=== PATIENT | female | born 1980 | race Caucasian/White ===

== ENCOUNTER → 2017-03-14 | Outpatient (CLI) | payer OTHER ==
--- NOTE | 2017-03-15 09:29 | XR ---
EXAMINATION TYPE: XR chest 2V DATE OF EXAM: 03/14/2017 COMPARISON: NONE HISTORY: Z77.120, rheumatoid arthritis TECHNIQUE: Frontal and lateral views of the chest are obtained. FINDINGS: There is no focal air space opacity, pleural effusion, or pneumothorax seen. The cardiac silhouette size is within normal limits. There is mild spinal curvature. Suspected mild pectus deform ity. The osseous structures are intact. IMPRESSION: No acute cardiopulmonary process.
== END | disposition home or self-care (01) ==
LOC: RADXRMAIN 12:47
PROVIDERS: ATTEND Internal Medicine
DX: Z77.120 Contact with and (suspected) exposure to mold (toxic) (principal)
CPT/HCPCS: 71020

== ENCOUNTER 2019-03-25 15:31 | Emergency (ER) | payer OTHER ==
[2019-03-25 15:46] VITALS: BP 136/81; PULSE 111; RESP 20; TEMP 98
[2019-03-25] MEDS ORDERED: SODIUM CHLORIDE 0.9% 1,000 ML IV STA (15:49)
[2019-03-25] MEDS ORDERED: KETOROLAC 30 MG/ML 1 ML VIAL IVP STA (15:49)
[2019-03-25] MEDS ORDERED: ORPHENADRINE 30 MG/ML 2 ML VIAL IVP STA (15:49)
--- NOTE | 2019-03-25 15:59 | ED ---
General Adult HPI - General Chief complaint: Back Pain/Injury Stated complaint: back pain Time Seen by Provider: 03/25/19 15:37 Source: patient, RN notes reviewed, old records reviewed Mode of arrival: ambulatory Limitations: no limitations - History of Present Illness Initial comments: This is a 30-year-old female presents today with complaints of 3 days of right- sided back pain. She reports it seemed to a sudden onset without any triggering factors such as movement or twisting. Patient states that she's had a similar back pain as this and she's had a ruptured ovarian cyst. Patient states that she was placed on control for ovarian cysts, but states that she did take herself off of the due to prolonged bleeding about 3 months ago. She states she resumed it as of yesterday. Patient states that she feels that there is swelling and irritation over the lower back. She denies any radiation down the leg. She denies any changes in stools or urination. - Related Data Home Medications Medication Instructions Recorded Confirmed Albuterol Inhaler [Ventolin Hfa 1 - 2 puff INHALATION RT-Q6H PRN 03/25/19 03/25/19 Inhaler] Escitalopram Oxalate [Lexapro] 10 mg PO DAILY 03/25/19 03/25/19 Folic Acid 1 mg PO DAILY 03/25/19 03/25/19 Ibuprofen [Motrin] 800 mg PO TID PRN 03/25/19 03/25/19 Norethindrone-E.estradiol-Iron 1 tab PO DAILY 03/25/19 03/25/19 [Junel Fe 24 Tablet] Previous Rx's Medication Instructions Recorded Baclofen 10 mg PO TID #15 tab 03/25/19 Ketorolac [Toradol] 10 mg PO TID #15 tab 03/25/19 traMADol HCL [Ultram] 50 mg PO Q6HR PRN 3 Days #12 tab 03/25/19 Nitrofurantoin Monohyd/M-Cryst 100 mg PO Q12HR #14 cap 03/26/19 [Macrobid] Allergies Allergy/AdvReac Type Severity Reaction Status Date / Time Penicillins Allergy Unknown Verified 03/26/19 07:58 Childhood Review of Systems ROS Statement: Those systems with pertinent positive or pertinent negative responses have been documented in the HPI. ROS Other: All systems not noted in ROS Statement are negative. Past Medical History Past Medical History: Asthma, Rheumatoid Arthritis (RA) History of Any Multi-Drug Resistant Organisms: None Reported Past Surgical History: Orthopedic Surgery, Tubal Ligation Additional Past Surgical History / Comment(s): rt knee Past Psychological History: Anxiety Smoking Status: Current every day smoker Past Alcohol Use History: Occasional Past Drug Use History: None Reported General Exam Limitations: no limitations General appearance: alert, in no apparent distress Head exam: Present: atraumatic, normocephalic, normal inspection Eye exam: Present: normal appearance, PERRL, EOMI. Absent: scleral icterus, conjunctival injection, periorbital swelling ENT exam: Present: normal exam, mucous membranes moist Neck exam: Present: normal inspection. Absent: tenderness, meningismus, lymphadenopathy Respiratory exam: Present: normal lung sounds bilaterally. Absent: respiratory distress, wheezes, rales, rhonchi, stridor Cardiovascular Exam: Present: regular rate, normal rhythm, normal heart sounds. Absent: systolic murmur, diastolic murmur, rubs, gallop, clicks GI/Abdominal exam: Present: soft, normal bowel sounds. Absent: distended, tenderness, guarding, rebound, rigid Extremities exam: Present: normal inspection, full ROM, normal capillary refill. Absent: tenderness, pedal edema, joint swelling, calf tenderness Back exam: Present: normal inspection, tenderness (over lumbar spine and right sided paraspinal muscle spasm. ) Neurological exam: Present: alert, oriented X3, CN II-XII intact Psychiatric exam: Present: normal affect, normal mood Skin exam: Present: warm, dry, intact, normal color. Absent: rash Course Vital Signs 03/25/19 15:43 Temperature 98.0 F Pulse Rate 111 H Respiratory 20 Rate Blood Pressure 136/81 O2 Sat by Pulse 97 Oximetry Medical Decision Making - Medical Decision Making 38-year-old female presents today with some right-sided back pain past few days. Patient was concerned this is likely related to ovarian cyst rupture. Labs were unremarkable. Patient has minimal abdominal tenderness. She does have evidence of back spasm. Patient feels better after norflexx and toradol. Discussed imaging such as transvaginal US, patient declines prefers follow up with OB. All questions answered. Return parameters discussed. UA also shows mild uti, will culture. - Lab Data Result diagrams: 03/25/19 16:00 03/25/19 16:00 Lab Results 03/25/19 03/25/19 03/25/19 Range/Units 16:00 16:00 16:00 WBC 6.3 (3.8-10.6) k/uL RBC 4.15 (3.80-5.40) m/uL Hgb 13.8 (11.4-16.0) gm/dL Hct 40.6 (34.0-46.0) % MCV 97.6 (80.0-100.0) fL MCH 33.1 (25.0-35.0) pg MCHC 33.9 (31.0-37.0) g/dL RDW 12.8 (11.5-15.5) % Plt Count 246 (150-450) k/uL Neutrophils % 65 % Lymphocytes % 24 % Monocytes % 4 % Eosinophils % 5 % Basophils % 1 % Neutrophils # 4.1 (1.3-7.7) k/uL Lymphocytes # 1.5 (1.0-4.8) k/uL Monocytes # 0.2 (0-1.0) k/uL Eosinophils # 0.3 (0-0.7) k/uL Basophils # 0.0 (0-0.2) k/uL Sodium 137 (137-145) mmol/L Potassium 3.9 (3.5-5.1) mmol/L Chloride 106 (98-107) mmol/L Carbon Dioxide 20 L (22-30) mmol/L Anion Gap 11 mmol/L BUN 15 (7-17) mg/dL Creatinine 0.79 (0.52-1.04) mg/dL Est GFR (CKD-EPI)AfAm >90 (>60 ml/min/1.73 sqM) Est GFR (CKD-EPI)NonAf >90 (>60 ml/min/1.73 sqM) Glucose 151 H (74-99) mg/dL Calcium 9.2 (8.4-10.2) mg/dL Total Bilirubin 0.4 (0.2-1.3) mg/dL AST 23 (14-36) U/L ALT 15 (9-52) U/L Alkaline Phosphatase 59 (38-126) U/L Total Protein 7.1 (6.3-8.2) g/dL Albumin 4.0 (3.5-5.0) g/dL Urine Color Urine Appearance (Clear) Urine pH (5.0-8.0) Ur Specific [place] (1.001-1.035) Urine Protein (Negative) Urine Glucose (UA) (Negative) Urine Ketones (Negative) Urine Blood (Negative) Urine Nitrite (Negative) Urine Bilirubin (Negative) Urine Urobilinogen (<2.0) mg/dL Ur Leukocyte Esterase (Negative) Urine RBC (0-5) /hpf Urine WBC (0-5) /hpf Ur Squamous Epith Cells (0-4) /hpf Urine Bacteria (None) /hpf Urine Mucus (None) /hpf Urine HCG, Qual Not Detected (Not Detectd) 03/25/19 Range/Units 16:00 WBC (3.8-10.6) k/uL RBC (3.80-5.40) m/uL Hgb (11.4-16.0) gm/dL Hct (34.0-46.0) % MCV (80.0-100.0) fL MCH (25.0-35.0) pg MCHC (31.0-37.0) g/dL RDW (11.5-15.5) % Plt Count (150-450) k/uL Neutrophils % % Lymphocytes % % Monocytes % % Eosinophils % % Basophils % % Neutrophils # (1.3-7.7) k/uL Lymphocytes # (1.0-4.8) k/uL Monocytes # (0-1.0) k/uL Eosinophils # (0-0.7) k/uL Basophils # (0-0.2) k/uL Sodium (137-145) mmol/L Potassium (3.5-5.1) mmol/L Chloride (98-107) mmol/L Carbon Dioxide (22-30) mmol/L Anion Gap mmol/L BUN (7-17) mg/dL Creatinine (0.52-1.04) mg/dL Est GFR (CKD-EPI)AfAm (>60 ml/min/1.73 sqM) Est GFR (CKD-EPI)NonAf (>60 ml/min/1.73 sqM) Glucose (74-99) mg/dL Calcium (8.4-10.2) mg/dL Total Bilirubin (0.2-1.3) mg/dL AST (14-36) U/L ALT (9-52) U/L Alkaline Phosphatase (38-126) U/L Total Protein (6.3-8.2) g/dL Albumin (3.5-5.0) g/dL Urine Color Yellow Urine Appearance Cloudy H (Clear) Urine pH 8.0 (5.0-8.0) Ur Specific [place] 1.026 (1.001-1.035) Urine Protein 1+ H (Negative) Urine Glucose (UA) Negative (Negative) Urine Ketones Negative (Negative) Urine Blood Negative (Negative) Urine Nitrite Negative (Negative) Urine Bilirubin Negative (Negative) Urine Urobilinogen 2.0 (<2.0) mg/dL Ur Leukocyte Esterase Large H (Negative) Urine RBC 7 H (0-5) /hpf Urine WBC 27 H (0-5) /hpf Ur Squamous Epith Cells 16 H (0-4) /hpf Urine Bacteria Rare H (None) /hpf Urine Mucus Occasional H (None) /hpf Urine HCG, Qual (Not Detectd) - Radiology Data Radiology results: report reviewed Lumbar spine straightening . Lumbar spondylolisthesis. Disposition Clinical Impression: Right-sided back pain, Lumbar paraspinal muscle spasm, UTI (urinary tract infection) Disposition: HOME SELF-CARE Condition: Good Instructions (If sedation given, give patient instructions): Muscle Spasm (ED) Additional Instructions: Patient advised to have close follow-up with primary care doctor. Return to the emergency department if any alarming signs or symptoms occur. Prescriptions: Baclofen 10 mg PO TID #15 tab Nitrofurantoin Monohyd/M-Cryst [Macrobid] 100 mg PO Q12HR #14 cap Ketorolac [Toradol] 10 mg PO TID #15 tab traMADol HCL [Ultram] 50 mg PO Q6HR PRN 3 Days #12 tab PRN Reason: Pain Is patient prescribed a controlled substance at d/c from ED?: Yes If prescribed controlled substance>3 days was MAPS reviewed?: Prescribed <3 Days If opioid is for acute pain is fill amount 7 days or less?: Yes If Rx opioid, was Start Talking consent form obtained?: Yes Referrals: Duncan Morillo Jr, DO [Primary Care Provider] - 1-2 days Time of Disposition: 17:48
[2019-03-25 16:19] LABS: Basophils % (A) 1 %; Eosinophils # (A) 0.3 k/uL (0-0.7); Eosinophils % (A) 5 %; HCT 40.6 % (34.0-46.0); HGB 13.8 gm/dL (11.4-16.0); Lymphocytes # (A) 1.5 k/uL (1.0-4.8); Lymphocytes % (A) 24 %; MCH 33.1 pg (25.0-35.0); MCHC 33.9 g/dL (31.0-37.0); MCV 97.6 fL (80.0-100.0); Mean Platelet Volume 6.8; Monocytes # (A) 0.2 k/uL (0-1.0); Monocytes % (A) 4 %; Neutrophils # (A) 4.1 k/uL (1.3-7.7); Neutrophils % (A) 65 %; Platelet Count 246 k/uL (150-450); RBC 4.15 m/uL (3.80-5.40); RDW 12.8 % (11.5-15.5); WBC 6.3 k/uL (3.8-10.6)
[2019-03-25 16:22] LABS: Appearance,Urine Cloudy (Clear); Bacteria,Urine Rare /hpf; Bilirubin,Urine Negative (Negative); Blood,Urine Negative (Negative); Color,Urine Yellow; Glucose,Urine (UA) Negative (Negative); Ketones,Urine Negative (Negative); Leukocyte Esterase,Urine Large (Negative); Mucus,Urine Occasional /hpf; Nitrite,Urine Negative (Negative); Protein,Urine 1+ (Negative); RBC,Urine 7 /hpf (0-5); Specific Gravity,Urine 1.026 (1.001-1.035); Squamous Epithelial Cell,Urine 16 /hpf (0-4); WBC,Urine 27 /hpf (0-5)
[2019-03-25 16:27] LABS: ALT 15 U/L (9-52); AST 23 U/L (14-36); African American GFR (CKD) >90 (>60 ml/min/1.73 sqM); Alkaline Phosphatase 59 U/L (38-126); Anion Gap 11 mmol/L; Blood Urea Nitrogen 15 mg/dL (7-17); Calcium 9.2 mg/dL (8.4-10.2); Carbon Dioxide 20 mmol/L (22-30); Chloride 106 mmol/L (98-107); Glucose 151 mg/dL (74-99); Potassium 3.9 mmol/L (3.5-5.1); Sodium 137 mmol/L (137-145); Total Bilirubin 0.4 mg/dL (0.2-1.3); Total Protein 7.1 g/dL (6.3-8.2)
--- NOTE | 2019-03-25 16:45 | XR ---
PROCEDURE: XR lumbar spine - 3V DATE AND TIME: 03/25/2019 4:34 PM CLINICAL INDICATION: PHH; Pain TECHNIQUE: Department protocol COMPARISON: None FINDINGS: There is no fracture or malalignment. There are no focal skeletal lesions. Lumbar spine straightening is noted, correlate for spasm. Multilevel mild degenerative facet changes are appreciated, in addition to mild degenerative disc audelia nges at the lumbosacral junction. The soft tissues are unremarkable. IMPRESSION: 1. Lumbar spine straightening. 2. Lumbar spondylosis.
== END 2019-03-25 17:59 | disposition home or self-care (01) ==
LOC: MERGE 15:31 → EC 15:31
DX: M62.830 Muscle spasm of back (principal); N39.0 Urinary tract infection, site not specified; J45.909 Unspecified asthma, uncomplicated; N83.209 Unspecified ovarian cyst, unspecified side; F41.9 Anxiety disorder, unspecified; F17.200 Nicotine dependence, unspecified, uncomplicated; Z79.3 Long term (current) use of hormonal contraceptives; Z79.899 Other long term (current) drug therapy; Z88.0 Allergy status to penicillin
CPT/HCPCS: 99284; 96374; 96375; 96361; 36415; 80053; 85025; 81001; 81025; 72100; J2360; J1885

== ENCOUNTER → 2019-05-22 | Outpatient (CLI) | payer BC ==
--- NOTE | 2019-05-22 13:00 | XR ---
EXAMINATION TYPE: XR chest 2V DATE OF EXAM: 05/22/2019 COMPARISON: 03/14/2017 TECHNIQUE: PA and lateral views submitted. HISTORY: Upper respiratory tract infection FINDINGS: The lungs are clear and there is no pneumothorax, pleural effusion, or focal pneumonia. No overt fa ilure. IMPRESSION: 1. No acute process.
== END | disposition home or self-care (01) ==
LOC: RADXRMAIN 12:30
PROVIDERS: ATTEND Family Medicine
DX: J06.9 Acute upper respiratory infection, unspecified (principal)
CPT/HCPCS: 71046

== ENCOUNTER → 2020-06-03 | Outpatient (CLI) | payer BC ==
[2020-06-03 18:55] LABS: Anti-Smith Ab Interp NEGATIVE (NEGATIVE); Cyclic Citrull Pep IgG Unit 0.5 U/mL; Cyclic Citrullinated Pep IgG NEGATIVE (NEGATIVE); DNA Double-Stranded NEGATIVE (NEGATIVE); JO-1 IgG Antibody <0.2 AI; Scleroderma SC-70 Ab <0.2 AI
== END | disposition home or self-care (01) ==
LOC: LABWHC1 07:52
PROVIDERS: ATTEND Nurse Practitioner Family
DX: M25.50 Pain in unspecified joint (principal)
CPT/HCPCS: 36415; 83516; 86038; 86200; 86225; 86235

== ENCOUNTER → 2020-10-20 | Outpatient (CLI) | payer BC ==
[2020-10-20 23:15] LABS: Total Protein,CSF 85 mg/dL (12-60)
[2020-10-21 03:38] LABS: Appearance,CSF Clear; CSF Tube Number 4; Nucleated Cells, CSF 2 u/L (0-5); Red Blood Cell,CSF 0 u/L (0-10)
[2020-10-22 12:48] LABS: IgG - CSF 4.6 mg/dL (0.0 - 3.4); IgG/Albumin Index (CSF) 0.47 (0.00 - 0.77)
== END | disposition home or self-care (01) ==
LOC: LABWHC1 09:12
PROVIDERS: ATTEND Nurse Practitioner Family
DX: H53.8 Other visual disturbances (principal); R90.82 White matter disease, unspecified; R42 Dizziness and giddiness
CPT/HCPCS: 36415; 82040; 82042; 82784; 83873; 83916; 84157; 87801; 88108; 89050

== ENCOUNTER → 2020-12-30 | Outpatient (CLI) | payer BC ==
[2020-12-30 20:10] LABS: Basophils # (A) 0.05 X 10*3/uL (0.00-0.10); Basophils % (A) 0.7 %; Eosinophils # (A) 0.11 X 10*3/uL (0.04-0.35); Eosinophils % (A) 1.6 %; HCT 41.6 % (37.2-46.3); HGB 13.4 g/dL (12.0-15.0); Lymphocytes # (A) 1.76 X 10*3/uL (0.90-5.00); Lymphocytes % (A) 26.2 %; MCH 31.1 pg (27.0-32.0); MCHC 32.2 g/dL (32.0-37.0); MCV 96.5 fL (80.0-97.0); Mean Platelet Volume 9.8 fL (9.5-12.2); Monocytes # (A) 0.45 X 10*3/uL (0.20-1.00); Monocytes % (A) 6.7 %; Neutrophils # (A) 4.33 X 10*3/uL (1.80-7.70); Neutrophils % (A) 64.5 %; Platelet Count 365 X 10*3/uL (140-440); RBC 4.31 X 10*6/uL (4.10-5.20); RDW 12.9 % (11.5-14.5); WBC 6.72 X 10*3/uL (4.50-10.00)
[2020-12-30 22:38] LABS: Erythrocyte Sedimentation Rate >140 mm/Hr (0-20)
[2020-12-31 02:23] LABS: EBV-EA (IgG) 1.4 AI; EBV-EBNA(IgG) >8.0 AI; EBV-VCA (IgG) >8.0 AI; EBV-VCA (IgM) 3.6 AI
[2020-12-31 04:03] LABS: Ferritin 64.5 ng/mL (10.0-291.0)
[2020-12-31 04:08] LABS: % Iron Saturation 19.03 (12.00-45.00); African American GFR (CKD) 106.9 (60.0-200.0); Albumin 4.4 g/dL (3.80-4.90); Albumin/Globulin Ratio 1.76 (1.60-3.17); Anion Gap 9.4 mmol/L (4.00-12.00); C Reactive Protein 1.7 mg/dL (0.0-0.8); Calcium 8.8 mg/dL (8.7-10.3); Carbon Dioxide 25.6 mmol/L (21.6-31.8); Chol/HDL Ratio 3.58; Globulin 2.5 g/dL (1.6-3.3); Magnesium 1.8 mg/dL (1.5-2.4); Non-African American GFR(CKD) 92.2 (60.0-200.0); Potassium 4.3 mmol/L (3.5-5.5); Total Bilirubin 0.3 mg/dL (0.2-1.2); Total Protein 6.9 g/dL (6.2-8.2)
[2020-12-31 05:44] LABS: EBV - VCA IgM 60.8 U/mL (<36.0)
[2020-12-31 05:45] LABS: EBV - EA (IgG) 39.8 U/mL (<9.0)
[2021-01-01 13:49] LABS: C-ANCA <1:20 Titer (<1:20)
== END | disposition home or self-care (01) ==
LOC: LABWHC1 11:43
PROVIDERS: ATTEND Nurse Practitioner Adult Health
DX: M06.00 Rheumatoid arthritis without rheumatoid factor, unspecified site (principal); E66.9 Obesity, unspecified; G35 Multiple sclerosis; J45.20 Mild intermittent asthma, uncomplicated; F33.9 Major depressive disorder, recurrent, unspecified
CPT/HCPCS: 36415; 80053; 80061; 82306; 82607; 82728; 82747; 83540; 83550; 83735; 84443; 85025; 85652; 86038; 86140; 86160; 86255; 86431; 86663; 86664; 86665

== ENCOUNTER 2021-12-23 13:41 | Emergency (ER) | payer BC ==
[2021-12-23 13:45] VITALS: TEMP 97.9
[2021-12-23] MEDS ORDERED: METOCLOPRAMIDE 5 MG/ML 2 ML VIAL IVP STA (14:37)
[2021-12-23] MEDS ORDERED: MORPHINE SULFATE 2 MG/ML SYRINGE IVP STA (14:37)
[2021-12-23] MEDS ORDERED: SODIUM CHLORIDE 0.9% 1,000 ML IV STA (14:37)
[2021-12-23] MEDS ORDERED: MECLIZINE 12.5 MG TAB PO STA (14:38)
[2021-12-23 15:22] LABS: Basophils % (A) 1 %; Eosinophils # (A) 0.2 k/uL (0-0.7); Eosinophils % (A) 4 %; HCT 40.3 % (34.0-46.0); HGB 13.1 gm/dL (11.4-16.0); Lymphocytes # (A) 1.4 k/uL (1.0-4.8); Lymphocytes % (A) 21 %; MCHC 32.6 g/dL (31.0-37.0); MCV 94.9 fL (80.0-100.0); Mean Platelet Volume 7.5; Monocytes # (A) 0.3 k/uL (0-1.0); Monocytes % (A) 4 %; Neutrophils # (A) 4.5 k/uL (1.3-7.7); Neutrophils % (A) 68 %; Platelet Count 299 k/uL (150-450); RBC 4.25 m/uL (3.80-5.40); RDW 14.3 % (11.5-15.5); WBC 6.6 k/uL (3.8-10.6)
[2021-12-23 15:30] LABS: INR 0.9 (<1.2); Partial Thromboplastin Time 24.7 sec (22.0-30.0); Prothrombin Time 9.7 sec (9.0-12.0)
[2021-12-23 15:51] LABS: ALT 14 U/L (4-34); AST 22 U/L (14-36); African American GFR (CKD) >90 (>60 ml/min/1.73 sqM); Albumin 3.9 g/dL (3.5-5.0); Alkaline Phosphatase 84 U/L (38-126); Anion Gap 5 mmol/L; Blood Urea Nitrogen 13 mg/dL (7-17); Calcium 8.9 mg/dL (8.4-10.2); Carbon Dioxide 26 mmol/L (22-30); Chloride 102 mmol/L (98-107); Glucose 121 mg/dL (74-99); Magnesium 1.8 mg/dL (1.6-2.3); Non-African American GFR(CKD) >90 (>60 ml/min/1.73 sqM); Potassium 4.1 mmol/L (3.5-5.1); Sodium 133 mmol/L (137-145); Total Bilirubin 0.3 mg/dL (0.2-1.3); Total Protein 7.3 g/dL (6.3-8.2)
--- NOTE | 2021-12-23 16:07 | CT ---
EXAMINATION TYPE: CT brain wo con DATE OF EXAM: 12/23/2021 COMPARISON: none HISTORY: headache and blurred vision CT DLP: 1155.[address] of the brain was performed. The ventricles, basal cisterns and sulci overlying the cerebral convexities demonstrate a normal appe arance. There is no evidence for intracranial hemorrhage or sulcal effacement. No mass effects are seen. Osseous calvarium is intact. If symptoms persist consider MRI as clinically warranted. IMPRESSION: 1. No acute intracranial process is seen at this time.
--- NOTE | 2021-12-23 16:21 | CT ---
EXAMINATION TYPE: CT angio head neck DATE OF EXAM: 12/23/2021 COMPARISON: None HISTORY: headache, blurred vision CT DLP: 523.7 mGycm CONTRAST: Performed with IV Contrast, patient injected with 65cc mL of Isovue 370. Combination Contrast CTA cervical carotids and [place] CTA cervical carotids with 3-D recons truction Contrast CTA of the cervical carotids was performed 3-D reconstruction imaging obtained at a separate workstation. Right carotid system: Mild plaque is seen of the right common carotid artery. There is mild plaque a lso noted at the carotid bulb and proximal ICA. No significant diameter reduction. ECA is patent. Right vertebral artery appears unremarkable. Left carotid system: Mild plaque is seen of the left common carotid artery. There is mild plaque als o noted at the carotid bulb and proximal ICA. Estimated diameter reduction of approximately 50% at t he left carotid bulb. ECA is patent. Left vertebral artery appears unremarkable. IMPRESSION: 1. No hemodynamically significant diameter reduction to account for the patient's symptoms. CTA [place] with 3-D reconstruction Contrast CTA of the [place] was performed 3-D reconstruction imaging obtained at a separate workstation. Vertebrobasilar system as well as intracranial portions of the internal carotid arteries and their ma elizabeth tributaries are patent. I do not see evidence for sizable aneurysm or vascular malformation. Pl ease note MRI provides greater sensitivity and specificity. Visualized brain appears grossly unremar kable. IMPRESSION: 1. No significant abnormality. NASCET criteria was used in interpretation of this exam?
[2021-12-23 16:55] VITALS: RESP 16
--- NOTE | 2021-12-23 16:56 | XR ---
EXAMINATION TYPE: XR chest 2V DATE OF EXAM: 12/23/2021 4:47 PM COMPARISON: Chest radiographs from 05/22/2019. TECHNIQUE: XR chest 2V Frontal and lateral views of the chest. CLINICAL INDICATION:Female, 41 years old with history of Chest Pain; FINDINGS: Lungs/Pleura: New airspace opacity within the right middle lobe. There is no evidence of pleural effu petra, focal consolidation, or pneumothorax. Pulmonary vascularity: Unremarkable. Heart/mediastinum: Cardiomediastinal silhouette is prominent in size. Musculoskeletal: No acute osseous pathology. IMPRESSION: Right middle lobe airspace opacities could represent developing pneumonia.
--- NOTE | 2021-12-23 17:21 | ED ---
General Adult HPI - General Chief complaint: Headache Stated complaint: Chest Pressure/Change in Vision Time Seen by Provider: 12/23/21 14:00 Source: patient, RN notes reviewed, old records reviewed Mode of arrival: ambulatory Limitations: no limitations - History of Present Illness Initial comments: Patient is a 41-year-old female with history remarkable for asthma, rheumatoid arthritis who has had repeated episodes of the complaints she is presenting with today. Describes her complaints is blurred vision as well as difficulty focusing that of been more frequent this week but it been ongoing for months to years. Patient also states that this morning she woke with a chest pressure feeling across bilateral chest. States it is since resolved. All her symptoms happen often per patient. She does work all day and stare at a computer screen. It is uncertain if this is involved in it. Previously was seeing a neurologist outpatient and had a full workup done for MS. Was not diagnosed with MS. Denies any history of strokes. Denies any weakness, numbness. His no other acute complaints at this time. Denies any fevers or chills, but does endorse a very mild cough. Presents for further evaluation of this time. - Related Data Home Medications Medication Instructions Recorded Confirmed Albuterol Inhaler [Ventolin Hfa 2 puff INHALATION RT-Q6H PRN 12/23/21 12/23/21 Inhaler] Cholecalciferol [Vitamin D3 (25 50 mcg PO DAILY 12/23/21 12/23/21 Mcg = 1000 Iu)] DULoxetine HCL [Cymbalta] 60 mg PO BID 12/23/21 12/23/21 Pregabalin [Lyrica] 150 mg PO BID 12/23/21 12/23/21 Previous Rx's Medication Instructions Recorded Azithromycin [Zithromax Z-pack (6 0 mg PO DIRECTED 5 Days #6 tab 12/23/21 tabs)] Allergies Allergy/AdvReac Type Severity Reaction Status Date / Time Penicillins Allergy Unknown Verified 12/23/21 16:38 Childhood Review of Systems ROS Statement: Those systems with pertinent positive or pertinent negative responses have been documented in the HPI. Review of Systems: CONST: Denies fever EYES: Endorses somewhat blurry vision. ENT: Denies nasal congestion C/V: Denies Chest pain RESP: Denies shortness of breath GI: Denies abdominal pain : Denies dysuria SKIN: Denies rash. MSK: Denies joint pain. NEURO: Denies headache ROS Other: All systems not noted in ROS Statement are negative. Past Medical History Past Medical History: Asthma, Rheumatoid Arthritis (RA) History of Any Multi-Drug Resistant Organisms: None Reported Past Surgical History: Orthopedic Surgery, Tubal Ligation Additional Past Surgical History / Comment(s): rt knee Past Psychological History: Anxiety Smoking Status: Never smoker Past Alcohol Use History: Occasional Past Drug Use History: None Reported General Exam - General Exam Comments Initial Comments: General: Appears in no acute distress. HEAD: Normal with no signs of head trauma. EYES: PERRLA, EOMI, conjunctiva normal, no discharge. Pupils are 3 mm and equal bilaterally. Visual acuity appears within normal limits. Normal accommodation. ENT: Hearing grossly intact, normal oropharynx. RESPIRATORY: Clear breath sounds bilaterally. No wheezes, rales, or rhonchi. C/V: Regular rate and rhythm. S1 and S2 auscultated, no edema, peripheral pulses 2+ and intact throughout ABD: Abd is soft, nontender, nondistended EXT: Normal range of motion, no obvious deformity SKIN: No rashes or lesions observed on exposed skin. NEURO: Alert and oriented x 4. Cranial nerves II-XII intact. No focal sensory or strength deficits. NIH is 0. GCS is 15. Able to ambulate without difficulty. Cerebellar function is intact as evident by normal finger to nose testing. Limitations: no limitations Course Vital Signs 12/23/21 12/23/21 12/23/21 13:41 15:45 17:00 Temperature 97.9 F Pulse Rate 130 H 110 H 80 Respiratory 18 16 16 Rate Blood Pressure 122/84 121/84 141/87 O2 Sat by Pulse 96 98 98 Oximetry 12/23/21 17:26 Temperature Pulse Rate 81 Respiratory 16 Rate Blood Pressure 138/71 O2 Sat by Pulse 97 Oximetry Medical Decision Making - Medical Decision Making Based on the patient's presentation and physical exam, I believe her symptoms are likely chronic kidney nature, however cannot rule out acute pathology at this time for daily with the questionable history of MS and what she describes as "brain lesion on MRI." Therefore we will obtain CT as well as CT angiogram of the head and neck. Basic labs will be obtained. For the patient's chest pain, we will obtain a single troponin as well as screening EKG. She'll be symptomatically treated with IV fluids, morphine, Reglan, Antivert. She was in agreement this plan. EKG showed no signs of acute ischemia. Laboratory studies were remarkable for a negative troponin. Remainder the labs are within normal limits. Brain CT shows no acute intracranial process. CT angiogram of the brain revealed no acute process. There was a delay in obtaining a chest x-ray due to patient volume. He eventually returned and showed a right middle lobe airspace opacity consistent with possible pneumonia. On reevaluation, patient is symptomatically improved. Vital signs are improved as well and now within normal limits. I discussed this the patient the results of her imaging and laboratory studies. She expressed understanding. As the symptoms appear chronic and she is symptomatically improved at this time, I believe it is safe to discharge home with follow-up with a neurologist. She was in agreement with the plan. She is having mild cough and upper esterase symptoms with findings consistent for pneumonia on chest x-ray, she'll be treated with a Z-Narendra. Patient was in agreement this plan. I will provide the patient with a prescription for azithromycin. I instructed the patient to follow up with their PCP in the next 3 days. I explained that the patient should return to the emergency department if they experience any worsening symptoms. Strict return precautions were discussed with the patient. The patient expressed understanding of these instructions. I answered all questions that the patient had. The patient was discharged home in good condition with their prescriptions and follow up information. - Lab Data Result diagrams: 12/23/21 15:17 12/23/21 15:17 Lab Results 12/23/21 12/23/21 12/23/21 Range/Units 15:17 15:17 15:17 WBC 6.6 (3.8-10.6) k/uL RBC 4.25 (3.80-5.40) m/uL Hgb 13.1 (11.4-16.0) gm/dL Hct 40.3 (34.0-46.0) % MCV 94.9 (80.0-100.0) fL MCH 31.0 (25.0-35.0) pg MCHC 32.6 (31.0-37.0) g/dL RDW 14.3 (11.5-15.5) % Plt Count 299 (150-450) k/uL MPV 7.5 Neutrophils % 68 % Lymphocytes % 21 % Monocytes % 4 % Eosinophils % 4 % Basophils % 1 % Neutrophils # 4.5 (1.3-7.7) k/uL Lymphocytes # 1.4 (1.0-4.8) k/uL Monocytes # 0.3 (0-1.0) k/uL Eosinophils # 0.2 (0-0.7) k/uL Basophils # 0.0 (0-0.2) k/uL PT 9.7 (9.0-12.0) sec INR 0.9 (<1.2) APTT 24.7 (22.0-30.0) sec Sodium 133 L (137-145) mmol/L Potassium 4.1 (3.5-5.1) mmol/L Chloride 102 (98-107) mmol/L Carbon Dioxide 26 (22-30) mmol/L Anion Gap 5 mmol/L BUN 13 (7-17) mg/dL Creatinine 0.75 (0.52-1.04) mg/dL Est GFR (CKD-EPI)AfAm >90 (>60 ml/min/1.73 sqM) Est GFR (CKD-EPI)NonAf >90 (>60 ml/min/1.73 sqM) Glucose 121 H (74-99) mg/dL Calcium 8.9 (8.4-10.2) mg/dL Magnesium 1.8 (1.6-2.3) mg/dL Total Bilirubin 0.3 (0.2-1.3) mg/dL AST 22 (14-36) U/L ALT 14 (4-34) U/L Alkaline Phosphatase 84 (38-126) U/L Troponin I (0.000-0.034) ng/mL Total Protein 7.3 (6.3-8.2) g/dL Albumin 3.9 (3.5-5.0) g/dL 12/23/21 Range/Units 15:17 WBC (3.8-10.6) k/uL RBC (3.80-5.40) m/uL Hgb (11.4-16.0) gm/dL Hct (34.0-46.0) % MCV (80.0-100.0) fL MCH (25.0-35.0) pg MCHC (31.0-37.0) g/dL RDW (11.5-15.5) % Plt Count (150-450) k/uL MPV Neutrophils % % Lymphocytes % % Monocytes % % Eosinophils % % Basophils % % Neutrophils # (1.3-7.7) k/uL Lymphocytes # (1.0-4.8) k/uL Monocytes # (0-1.0) k/uL Eosinophils # (0-0.7) k/uL Basophils # (0-0.2) k/uL PT (9.0-12.0) sec INR (<1.2) APTT (22.0-30.0) sec Sodium (137-145) mmol/L Potassium (3.5-5.1) mmol/L Chloride (98-107) mmol/L Carbon Dioxide (22-30) mmol/L Anion Gap mmol/L BUN (7-17) mg/dL Creatinine (0.52-1.04) mg/dL Est GFR (CKD-EPI)AfAm (>60 ml/min/1.73 sqM) Est GFR (CKD-EPI)NonAf (>60 ml/min/1.73 sqM) Glucose (74-99) mg/dL Calcium (8.4-10.2) mg/dL Magnesium (1.6-2.3) mg/dL Total Bilirubin (0.2-1.3) mg/dL AST (14-36) U/L ALT (4-34) U/L Alkaline Phosphatase (38-126) U/L Troponin I <0.012 (0.000-0.034) ng/mL Total Protein (6.3-8.2) g/dL Albumin (3.5-5.0) g/dL - EKG Data -: EKG Interpreted by Me EKG Comments: 12-lead Electrocardiogram Interpretation Note EKG was reviewed and interpreted by myself. 12-lead ECG performed at 1354 is interpreted by me as revealing normal sinus rhythm at a rate of 103 beats per minute. [place] is normal. IA intervals 120 ms, QRS duration is 102 ms, QTc is 376 ms. There were no ST or T wave abnormalities to suggest myocardial ischemia or injury. R wave progression across the precordium was satisfactory. By my interpretation this EKG is non-diagnostic for acute ischemia. Disposition Clinical Impression: CAP (community acquired pneumonia), Blurry vision, bilateral, Headache Disposition: HOME SELF-CARE Condition: Good Prescriptions: Azithromycin [Zithromax Z-pack (6 tabs)] 0 mg PO DIRECTED 5 Days #6 tab Is patient prescribed a controlled substance at d/c from ED?: No Referrals: Duncan Morillo Jr, [Primary Care Provider] - 1-2 days Time of Disposition: 17:10
[2021-12-23 17:27] VITALS: BP 138/71; PULSE 81
== END 2021-12-23 17:36 | disposition home or self-care (01) ==
LOC: EC 13:41
DX: J18.9 Pneumonia, unspecified organism (principal); H53.8 Other visual disturbances; R51.9 Headache, unspecified; J45.909 Unspecified asthma, uncomplicated; F41.9 Anxiety disorder, unspecified; M06.9 Rheumatoid arthritis, unspecified; Z88.0 Allergy status to penicillin; Z79.51 Long term (current) use of inhaled steroids; Z79.899 Other long term (current) drug therapy
CPT/HCPCS: 36415; 93005; 80053; 83735; 84484; 85025; 85610; 85730; 71046; 70496; 70450; 70498; 99285; 96374; 96375; 96361 ×2; J2765; J2270; Q9967

== ENCOUNTER → 2025-01-29 | Outpatient (CLI) | payer BC ==
--- NOTE | 2025-01-29 15:15 | MM ---
Reason for Exam: Screening (asymptomatic). Baseline mammogram. Patient History: Menarche at age 15. First Full-Term at age 28. Patient has history of breast feeding. Other cancer, age 43. Patient used Hormonal Contraceptives for 7 years. Risk Values: Saray 5 year model risk: 0.8%. NCI Lifetime model risk: 9.8%. Prior Study Comparison: Patient's first Mammogram. Tissue Density: The breasts are heterogeneously dense, which may obscure small masses. Findings: Analyzed By CAD. There is no suspicious group of microcalcifications or suspicious mass in either breast. Overall Assessment: Negative, BI-RAD 1 Management: Screening Mammogram of both breasts in 1 year. Some advise annual bilateral breast ultrasound surveillance in patients with background dense tissue. Patient should continue monthly self-breast exams. A clinical breast exam by your physician is recommended on an annual basis. This exam should not preclude additional follow-up of suspicious palpable abnormalities. Note on Saray scores and lifetime risk: 1. A Saray score greater than 3% is considered moderate risk. If this is the case, consider specialist referral to assess eligibility for a risk reducing agent. 2. If overall lifetime risk for the development of breast cancer is 20% or higher, the patient may qualify for future screening with alternating mammogram and breast MRI. [facility], , 01/29/2025 3:12 PM. Electronically signed and approved by: Lonny Vincent M.D.
== END | disposition home or self-care (01) ==
LOC: RADMAMWWP 14:33
PROVIDERS: ATTEND Family Medicine
DX: Z12.31 Encounter for screening mammogram for malignant neoplasm of breast (principal); R92.333 Mammographic heterogeneous density, bilateral breasts; Z92.0 Personal history of contraception
CPT/HCPCS: 77063; 77067

== ENCOUNTER → 2025-01-29 | Outpatient (CLI) | payer BC ==
--- NOTE | 2025-01-29 15:28 | US ---
EXAMINATION TYPE: US thyroid st tissue head/neck DATE OF EXAM: 01/29/2025 COMPARISON: NONE CLINICAL INDICATION: Female, 44 years old with history of R42 DIZZINESS,R00.0 TACHYCARDIA; Pt noticed swelling in neck TECHNIQUE: Grayscale and color Doppler imaging of the thyroid gland. Normal appearing lymph nodes visualized bilaterally. IMPRESSION: No suspicious ultrasound abnormality of the neck. [facility], , 01/29/2025 3:26 PM
== END | disposition home or self-care (01) ==
LOC: RADUSWWP 14:30
PROVIDERS: ATTEND Family Medicine
DX: R42 Dizziness and giddiness (principal); R00.0 Tachycardia, unspecified; E66.9 Obesity, unspecified; Z79.899 Other long term (current) drug therapy; Z68.34 Body mass index [BMI] 34.0-34.9, adult
CPT/HCPCS: 76536

== ENCOUNTER → 2025-01-31 | Outpatient (CLI) | payer BC ==
--- NOTE | 2025-01-31 13:17 | CA ---
Stress Echo Report Rosey Hamilton Age: 44 Gender: F : 1980 Exam Date: 01/31/2025 09:36 Exam Location: [facility] Ht (in): 65 Wt (lb): 215 Ordering Physician: Duncan Morillo DO Referring Physician: Fred Tsang [facility] Price Accuracy Supervisor: Mike Denton [facility] Technologist [email or web address] Procedure CPT: Indication: R42 Dizziness ICD-9 Codes: Rhythm: Patient History: CHEST PRESSURE, PALPITATIONS, FAMILY HX OF HEART DISEASE, CURRENT SMOKER (VAPE), ASTHMA Cardiac Medications: ZOLOFT,,,,,, XANAX,,,,,, ALBUTEROL,,,,, Medications in past 24 hours: Contrast: Definity Stress Results Protocol: Rodger Total dose(mL): 2 Exercise Duration (min:sec): 6:[address] Depression (mm): Angina Score: [place] Score: METS: 7.9 Resting HR: 97 Resting BP: 127 / 74 Peak HR: 158 Peak BP: 197 / 54 Max Predicted HR: 176 90 % Max Predicted HR Target HR: 150 Double Product: [id number] Stress Summary: The patient's target heart rate was achieved BP Response: Reason for Termination: MAX EXERTION/TARGET HR Cardiac Symptoms: SRINIVASAN ECG Analysis Resting ECG: Normal sinus rhythm, incomplete right bundle branch block Stress ECG: No abnormal ST/T wave changes with exercise Arrhythmia: Occasional PVCs Echo Analysis Resting Echo: Normal resting echocardiogram. Peak Echo Analysis: Normal wall thickening and motion with decrease in the cavity size MEASUREMENTS (Male/Female) Normal Values CONCLUSIONS 1. Average exercise tolerance with normal electrocardiographic sponsor exercise 2. Occasional PVCs 3. Normal stress echocardiogram with no evidence of stress induced ischemia. Dr. Makenzie Toscano MD (Electronically Signed) Final Date: 31 January 2025 13:16
== END | disposition home or self-care (01) ==
LOC: RADNMMAIN 09:01
PROVIDERS: ATTEND Family Medicine
DX: R00.0 Tachycardia, unspecified (principal); I49.3 Ventricular premature depolarization; Z79.899 Other long term (current) drug therapy
CPT/HCPCS: 93351; Q9957